=== PATIENT | female | born 1990 | race Hispanic/Latino ===

== ENCOUNTER 2019-12-02 11:02 | Emergency (ER) | payer SELFPAY ==
--- OUTSIDE RECORDS SUMMARY | 2019-12-02 12:19 | XMS REPORT ---
:1990 Author Organization [facility] t Address [address] [place] [address] Dr. Angela [address] [place] [id number] Care Team Providers Name Role Phone Unavailable Unavailable Unavailable Problems This patient has no known problems. Allergies, Adverse Reactions, Alerts This patient has no known allergies or adverse reactions. Medications This patient has no known medications. Procedures This patient has no known procedures. Results This patient has no known results.
[2019-12-02 12:27] LABS: Absolute Lymphocytes (CBC) 1.6 K/uL (0.7-4.9); Basophils % 0.4 % (0-1.3); Hematocrit 40.7 % (36.0-45.0); Lymphocytes % 28.3 % (15.3-44.8); MPV 10.1 fL (7.6-11.3); RBC Red Blood Cell Count 4.66 M/uL (3.86-4.86)
[2019-12-02 13:09] LABS: BUN Blood Urea Nitrogen 14 mg/dL (7-18); Bicarbonate 25 mmol/L (21-32); Glucose Level 97 mg/dL (74-106); HCG, Quantitative 12859 mIU/mL (1-3); Potassium 3.8 mmol/L (3.5-5.1); Sodium Level 136 mmol/L (136-145)
--- NOTE | 2019-12-02 14:30 | RAD REPORT ---
EXAM DESCRIPTION: US - Transvaginal OB - 12/02/2019 2:12 pm CLINICAL HISTORY: Vaginal bleeding;Abd cramping, COMPARISON: No comparisons TECHNIQUE: Endovaginal sonography performed. FINDINGS: Normal size uterus is present. No suspicious myometrial mass identifiable. Within the fundal endometrial cavity there are 3 small oval cystic masses. Within 1 cyst there is a y olk sac identifiable and possible pole. Within the possible pole there is no cardiac acti vity confirmed. Estimated age of the possible pole is 6 weeks 2 days. The 2 other smooth oval c ystic masses have no yolk sac or possible pole. No intrauterine hematoma. Both ovaries are identifiable. Small hemorrhagic cyst seen in the right ovary. No worrisome ovarian o r adnexal finding. No blood or fluid in the cul de sac. IMPRESSION: Three small adjacent cystic masses are present in the uterus all possibly gestational sa cs. Only 1 sac contains a yolk sac and possible pole. The pole measures approximately 6 weeks age but has no identifiable cardiac activity. No suspicious ovarian or adnexal finding.
[2019-12-02] MEDS ORDERED: ACETAMINOPHEN 500 MG TAB ONE (14:58)
[2019-12-02 15:20] VITALS: TEMP 97.3
[2019-12-02 15:22] VITALS: BP 115/82; O2SAT 100
[2019-12-02 15:26] LABS: Urine Blood TRACE (NEG); Urine Glucose NEGATIVE (NEG); Urine Protein NEGATIVE (NEG); Urine Specific Gravity 1.025 (1.005-1.030)
--- NOTE | 2019-12-06 15:52 | ER ---
Nurse's Notes [facility] Name: Sylvie Gomez Age: 29 yrs Sex: Female : 1990 Arrival Date: 12/02/2019 Time: 11:05 Bed 13 Private MD: Diagnosis: Threatened Presentation: 12/01 11:15 Chief complaint: Intermittent lower abdominal cramping and spotty vaginal bleeding x 2 hb weeks, passed a dark red blood clot this morning. Reports LMP September 2019, + home test last month, has been unable to get in to OBGYN. Coronavirus screen: Proceed with normal triage. Ebola Screen: No symptoms or risks identified at this time. Initial Sepsis Screen: Does the patient meet any 2 criteria? No. Patient's initial sepsis screen is negative. Does the patient have a suspected source of infection? No. Patient's initial sepsis screen is negative. Risk Assessment: Do you want to hurt yourself or someone else? Patient reports no desire to harm self or others. Onset of symptoms was December 02, 2019. 11:15 Method Of Arrival: Ambulatory hb 11:15 Acuity: SYDNEE 3 hb CV RN: 13:55 7, Full Term 6, LMP 09/28/2019 ll1 14:16 7, Full Term 6, Premature 0, 0, Living 6 jr8 Historical: - Allergies: 11:18 No Known Allergies; hb - Immunization history:: Adult Immunizations up to date. - Social history:: Smoking status: Patient denies any tobacco usage or history of. Patient/guardian denies using alcohol, street drugs, tobacco products. Screenin:13 Abuse screen: Denies threats or abuse. Nutritional screening: No deficits noted. ll1 Tuberculosis screening: No symptoms or risk factors identified. Fall Risk None identified. IV access (20 points). Total Richter Fall Scale indicates No Risk (0-24 pts). Assessment: 12:12 General: Appears in no apparent distress. Behavior is calm, cooperative, appropriate ll1 for age. Pain: Denies pain. Neuro: No deficits noted. Cardiovascular: No deficits noted. Respiratory: No deficits noted. : Reports vaginal bleeding that is bright red, with clots. 13:10 Reassessment: Patient appears in no apparent distress at this time. No changes from ll1 previously documented assessment. Patient and/or family updated on plan of care and expected duration. Pain level reassessed. Patient is alert, oriented x 3, equal unlabored respirations, skin warm/dry/pink. 13:54 : Urine is clear. ll1 14:15 Reassessment: Patient appears in no apparent distress at this time. Patient and/or vc family updated on plan of care and expected duration. Pain level reassessed. Patient is alert, oriented x 3, equal unlabored respirations, skin warm/dry/pink. 14:57 General: Appears in no apparent distress. uncomfortable, Behavior is calm, cooperative, vc appropriate for age. Pain: Complains of pain in left lower quadrant and right lower quadrant Pain does not radiate. Pain currently is 5 out of 10 on a pain scale. Quality of pain is described as crampy. : Reports vaginal bleeding that is bright red, with clots. Vital Signs: 11:15 BP 113 / 69; Pulse 71; Resp 16; Temp 97.3; Pulse Ox 100% on R/A; Weight 90.72 kg; hb Height 5 ft. 5 in. (165.10 cm); Pain 3/10; 14:45 BP 98 / 63; Pulse 64; Resp 16; Pulse Ox 98% on R/A; vc 15:13 BP 115 / 82; Pulse 65; Resp 18; Pulse Ox 100% on R/A; vc 11:15 Body Mass Index 33.28 (90.72 kg, 165.10 cm) hb ED Course: 11:05 Patient arrived in ED. mr 11:18 Triage completed. hb 11:52 Chanelle Leong, RN is Primary Nurse. ll1 11:57 Christo Red PA is PHCP. jr8 11:57 Mike Morris MD is Attending Physician. jr8 12:00 Inserted saline lock: 20 gauge in left antecubital area, using aseptic technique. Blood ll1 collected. 12:14 Arm band placed on. ll1 13:25 Urine collected: clean catch specimen, clear. ca1 14:05 Patient has correct armband on for positive identification. Bed in low position. Call vc light in reach. Pulse ox on. NIBP on. 14:12 US Transvaginal Ob In Process Unspecified. EDMS 14:19 Ultrasound completed. hr 14:53 Santo Clifton MD is Referral Physician. jr8 14:57 No provider procedures requiring assistance completed. vc 15:14 IV discontinued, intact, bleeding controlled, No redness/swelling at site. Pressure vc dressing applied. Administered Medications: 14:56 Drug: Tylenol 1000 mg Route: PO; vc 15:10 Follow up: Response: No adverse reaction vc Outcome: 14:53 Discharge ordered by . jr8 15:14 Discharged to home ambulatory. vc 15:14 Condition: good 15:14 Discharge instructions given to patient, Instructed on discharge instructions, follow up and referral plans. Demonstrated understanding of instructions, follow-up care. 15:15 Patient left the ED. vc Signatures: Dispatcher [employer] EDDC Noah Delaney mr Familia, Christo Estrada, TIMBO PA jr8 Bonnie Corley, RN RN Iza Coleman RN RN ca1 Deborah Cervantes RN RN Chanelle Schreiber RN RN ll1 Corrections: (The following items were deleted from the chart) 13:55 13:54 Reassessment: Patient appears in no apparent distress at this time. No changes ll1 from previously documented assessment. Patient and/or family updated on plan of care and expected duration. Pain level reassessed. Patient is alert, oriented x 3, equal unlabored respirations, skin warm/dry/pink. ll1
--- NOTE | 2019-12-06 15:52 | EDPHYS ---
Physician Documentation [facility] Name: Sylvie Gomez Age: 29 yrs Sex: Female : 1990 Arrival Date: 12/02/2019 Time: 11:05 Bed 13 Private MD: ED Physician Mike Morris HPI: 12/01 14:16 This 29 yrs old Female presents to ER via Ambulatory with complaints of jr8 , Vaginal Bleeding, Abdominal Cramping. 14:16 The patient presents to the emergency department with abdominal pain, vaginal bleeding, jr8 described as spotting, with clots. course: care: none, Leakage of Fluid: none appreciated, Ultrasound: the patient has not had an ultrasound, Risk/complications: no obvious risks or complications are appreciated. Previous pregnancies: in previous pregnancies patient has had vaginal delivery, no complications. Associated signs and symptoms: The patient has no apparent associated signs or symptoms. The patient has not experienced similar symptoms in the past. The patient has not recently seen a physician. Stated that she has been having spotting and cramping for past couple of weeks. Cramping getting worse. Has not been able to see OB yet . 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 - Social history:: Smoking status: Patient denies any tobacco usage or history of. Patient/guardian denies using alcohol, street drugs, tobacco products. ROS: 14:16 Eyes: Negative for injury, pain, redness, and discharge, ENT: Negative for injury, jr8 pain, and discharge, Neck: Negative for injury, pain, and swelling, Cardiovascular: Negative for chest pain, palpitations, and edema, Respiratory: Negative for shortness of breath, cough, wheezing, and pleuritic chest pain, Back: Negative for injury and pain, MS/Extremity: Negative for injury and deformity, Skin: Negative for injury, rash, and discoloration, Neuro: Negative for headache, weakness, numbness, tingling, and seizure. 14:16 Abdomen/GI: Positive for abdominal cramps, Negative for nausea, vomiting, and diarrhea. 14:16 : Positive for vaginal bleeding, Negative for urinary symptoms. Exam: 14:16 Eyes: Pupils equal round and reactive to light, extra-ocular motions intact. Lids and jr8 lashes normal. Conjunctiva and sclera are non-icteric and not injected. Cornea within normal limits. Periorbital areas with no swelling, redness, or edema. ENT: Nares patent. No nasal discharge, no septal abnormalities noted. Tympanic membranes are normal and external auditory canals are clear. Oropharynx with no redness, swelling, or masses, exudates, or evidence of obstruction, uvula midline. Mucous membranes moist. Neck: Trachea midline, no thyromegaly or masses palpated, and no cervical lymphadenopathy. Supple, full range of motion without nuchal rigidity, or vertebral point tenderness. No Meningismus. Cardiovascular: Regular rate and rhythm with a normal S1 and S2. No gallops, murmurs, or rubs. Normal PMI, no JVD. No pulse deficits. Respiratory: Lungs have equal breath sounds bilaterally, clear to auscultation and percussion. No rales, rhonchi or wheezes noted. No increased work of breathing, no retractions or nasal flaring. Back: No spinal tenderness. No costovertebral tenderness. Full range of motion. Skin: Warm, dry with normal turgor. Normal color with no rashes, no lesions, and no evidence of cellulitis. MS/ Extremity: Pulses equal, no cyanosis. Neurovascular intact. Full, normal range of motion. Neuro: Awake and alert, GCS 15, oriented to person, place, time, and situation. Cranial nerves II-XII grossly intact. Motor strength 5/5 in all extremities. Sensory grossly intact. Cerebellar exam normal. Normal gait. 14:16 Abdomen/GI: Inspection: abdomen appears normal, Bowel sounds: active, all quadrants, Palpation: soft, in all quadrants, mild abdominal tenderness, in the right lower quadrant and left lower quadrant, mass, is not appreciated, rebound tenderness, is not appreciated, voluntary guarding, is not appreciated, involuntary guarding, is not appreciated, no appreciated organomegaly, Indicators: McBurney's point is not tender, Puga's sign is negative, Rovsing's sign is negative, Liver: tenderness, is not appreciated. Vital Signs: 11:15 BP 113 / 69; Pulse 71; Resp 16; Temp 97.3; Pulse Ox 100% on R/A; Weight 90.72 kg; hb Height 5 ft. 5 in. (165.10 cm); Pain 3/10; 14:45 BP 98 / 63; Pulse 64; Resp 16; Pulse Ox 98% on R/A; vc 15:13 BP 115 / 82; Pulse 65; Resp 18; Pulse Ox 100% on R/A; vc 11:15 Body Mass Index 33.28 (90.72 kg, 165.10 cm) hb MDM: 11:57 Patient medically screened. [facility] 14:42 Data reviewed: vital signs, nurses notes, lab test result(s), radiologic studies, [facility] ultrasound, and as a result, I will discharge patient. Data interpreted: Pulse oximetry: on room air is 100 %. Interpretation: normal. Counseling: I had a detailed discussion with the patient and/or guardian regarding: the historical points, exam findings, and any diagnostic results supporting the discharge/admit diagnosis, lab results, radiology results, the need for outpatient follow up, an OB/Gyne specialist, to return to the emergency department if symptoms worsen or persist or if there are any questions or concerns that arise at home. 12/01 11:57 Order name: Quantitative Hcg; Complete Time: 13: [facility] 12/01 11:57 Order name: Abo/rh Typing; Complete Time: 13: [facility] 12/01 11:57 Order name: Basic Metabolic Panel; Complete Time: 13: [facility] 12/01 11:57 Order name: CBC with Diff; Complete Time: 13: [facility] 12/01 13:33 Order name: Urine Dipstick--Ancillary (enter results) 12/01 13:33 Order name: Urine --Ancillary (enter results) 12/01 11:57 Order name: Urine Test (obtain specimen); Complete Time: 13:25 [facility] 12/01 11:57 Order name: IV Saline Lock; Complete Time: 12: [facility] 12/01 11:57 Order name: Labs collected and sent; Complete Time: 12: [facility] 12/01 11:57 Order name: NPO; Complete Time: 12: [facility] 12/01 11:57 Order name: Urine Dipstick-Ancillary (obtain specimen); Complete Time: 13: [facility] 12/01 13:27 Order name: US Transvaginal Ob; Complete Time: 14:40 8 Administered Medications: 14:56 Drug: Tylenol 1000 mg Route: PO; vc 15:10 Follow up: Response: No adverse reaction vc Disposition: 12/02/19 14:53 Discharged to Home. Impression: Threatened . - Condition is Stable. - Discharge Instructions: Threatened Miscarriage, Vaginal Bleeding During , First Trimester, Pelvic Rest. - Medication Reconciliation Form, Thank You Letter, Antibiotic Education, Prescription Opioid Use form. - Follow up: Santo Clifton MD; When: 5 - 6 days; Reason: Recheck today's complaints, Continuance of care, Re-evaluation by your physician. - Problem is new. - Symptoms have improved. Addendum: 12/04/2019 07:53 Co-signature as Attending Physician, Mike Morris MD I agree with the assessment and k dr plan of care. Signatures: Dispatcher [employer] EDMS Mike Morris MD MD [facility] Christo Red PA PA jr8 Bonnie Corley RN RN Deborah Cervantes RN RN vc Chanelle Leong RN RN ll1 Corrections: (The following items were deleted from the chart) 12/01 15:15 14:53 12/02/2019 14:53 Discharged to Home. Impression: Threatened . Condition vc is Stable. Forms are Medication Reconciliation Form, Thank You Letter, Antibiotic Education, Prescription Opioid Use. Follow up: Santo Clifton; When: 5 - 6 days; Reason: Recheck today's complaints, Continuance of care, Re-evaluation by your physician. Problem is new. Symptoms have improved. jr8
== END 2019-12-02 15:15 | disposition home or self-care (01) ==
LOC: ER 11:02
DX: O20.0 Threatened abortion (principal)
CPT/HCPCS: 36415; 76817; 80048; 81003; 81025; 84702; 85025; 86900; 86901; 99284

== ENCOUNTER 2019-12-05 21:19 | Emergency (ER) | payer OTHER, SELFPAY ==
--- OUTSIDE RECORDS SUMMARY | 2019-12-05 21:21 | XMS REPORT ---
:1990 Author Organization [facility] t Address [address] [place] [address] Dr. Angela [address] [place] [id number] Care Team Providers Name Role Phone Unavailable Unavailable Unavailable Problems This patient has no known problems. Allergies, Adverse Reactions, Alerts This patient has no known allergies or adverse reactions. Medications This patient has no known medications. Procedures This patient has no known procedures. Results This patient has no known results.
[2019-12-05 22:17] LABS: Specific Gravity >= 1.030 (1.005-1.030); Urine Appearance CLOUDY; Urine Bilirubin NEGATIVE (NEG); Urine Blood 3+ (NEG); Urine Color YELLOW; Urine Glucose NEGATIVE (NEG); Urine Protein 3+ (NEG); Urine Specific Gravity >=1.030 (1.005-1.030)
[2019-12-05 22:19] LABS: Urine Microscopic Reflex ORDER UMIC
[2019-12-05 22:21] LABS: Urine Bacteria <20 /HPF (<20); Urine RBC LOADED /HPF (NONE SEEN)
[2019-12-05 22:22] LABS: Urine Culture Reflex Order NOT NEEDED
[2019-12-05 23:24] LABS: Absolute Lymphocytes (CBC) 2.5 K/uL (0.7-4.9); Basophils % 0.5 % (0-1.3); Hematocrit 36.7 % (36.0-45.0); Lymphocytes % 30.1 % (15.3-44.8); MPV 9.8 fL (7.6-11.3); RBC Red Blood Cell Count 4.12 M/uL (3.86-4.86)
[2019-12-05 23:31] LABS: BUN Blood Urea Nitrogen 13 mg/dL (7-18); Bicarbonate 27 mmol/L (21-32); Glucose Level 103 mg/dL (74-106); Potassium 3.5 mmol/L (3.5-5.1); Sodium Level 141 mmol/L (136-145)
[2019-12-06 00:59] LABS: HCG, Quantitative 7711 mIU/mL (1-3)
[2019-12-06] MEDS ORDERED: METHYLERGONOVINE 0.2MG/ML AMP IM ONE (01:10)
[2019-12-06] MEDS ORDERED: METHYLERGONOVINE 0.2 MG TAB PO ONE (01:19)
[2019-12-06 02:36] VITALS: O2SAT 99
[2019-12-06 02:41] VITALS: BP 127/82; TEMP 97.2
--- NOTE | 2019-12-06 08:34 | RAD REPORT ---
EXAM DESCRIPTION: US - Transvaginal OB - 12/05/2019 11:39 pm CLINICAL HISTORY: VAGINAL BLEEDING COMPARISON: Transvaginal OB dated 12/02/2019 FINDINGS: Endovaginal sonography shows normal size uterus with no myometrial mass identifiable. An i rregular elongated fluid collection is present in the lower uterine segment. Within this fluid collec tion there is no identifiable yolk sac or pole. Small amount of echogenic debris is present wit hin this cystic structure. Right ovary is identified and normal. No right adnexal abnormality. Left ovary is obscured by bowel. No left adnexal abnormality. No blood or fluid in the cul de sac. IMPRESSION: Irregular elongated fluid-filled sac in the lower uterine segment containing echogenic d ebris but no pole or yolk sac. In the setting of positive test this is most likely a miscarriage. No adnexal mass to suspect ectopic .
--- NOTE | 2019-12-06 19:34 | EDPHYS ---
Physician Documentation [facility] Name: Sylvie Gomez Age: 29 yrs Sex: Female : 1990 Arrival Date: 12/05/2019 Time: 21:23 Bed 13 Private MD: ED Physician Neftaly Mcallister HPI: 12/05 00:35 This 29 yrs old Female presents to ER via Ambulatory with complaints of pkl Vaginal Bleeding. 00:35 The patient presents with vaginal bleeding that is moderate, with clots. Onset: The pkl symptoms/episode began/occurred today. Patient was seen in this ER 3 days ago. US shows possibly 3 gestational sacs. Only 1 sac contains a yolk sac and possible pole. The pole measures approx. 6 weeks age but has no identifiable cardiac activity. Patient said her vaginal bleeding is heavier today and she is passing clots.. 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 - Social history:: Smoking status: Patient denies any tobacco usage or history of. ROS: 12/05 00:35 Positive for vaginal bleeding. pkl Eyes: Negative for injury, pain, redness, and discharge, ENT: Negative for injury, pain, and discharge, Neck: Negative for injury, pain, and swelling, Cardiovascular: Negative for chest pain, palpitations, and edema, Respiratory: Negative for shortness of breath, cough, wheezing, and pleuritic chest pain, Abdomen/GI: Negative for abdominal pain, nausea, vomiting, diarrhea, and constipation, Back: Negative for injury and pain, MS/Extremity: Negative for injury and deformity, Skin: Negative for injury, rash, and discoloration, Neuro: Negative for headache, weakness, numbness, tingling, and seizure. Exam: 00:35 Head/Face: Normocephalic, atraumatic. Eyes: Pupils equal round and reactive to light, pkl extra-ocular motions intact. Lids and lashes normal. Conjunctiva and sclera are non-icteric and not injected. Cornea within normal limits. Periorbital areas with no swelling, redness, or edema. ENT: Nares patent. No nasal discharge, no septal abnormalities noted. Tympanic membranes are normal and external auditory canals are clear. Oropharynx with no redness, swelling, or masses, exudates, or evidence of obstruction, uvula midline. Mucous membranes moist. Neck: Trachea midline, no thyromegaly or masses palpated, and no cervical lymphadenopathy. Supple, full range of motion without nuchal rigidity, or vertebral point tenderness. No Meningismus. Chest/axilla: Normal chest wall appearance and motion. Nontender with no deformity. No lesions are appreciated. Cardiovascular: Regular rate and rhythm with a normal S1 and S2. No gallops, murmurs, or rubs. Normal PMI, no JVD. No pulse deficits. Respiratory: Lungs have equal breath sounds bilaterally, clear to auscultation and percussion. No rales, rhonchi or wheezes noted. No increased work of breathing, no retractions or nasal flaring. Abdomen/GI: Soft, non-tender, with normal bowel sounds. No distension or tympany. No guarding or rebound. No evidence of tenderness throughout. Back: No spinal tenderness. No costovertebral tenderness. Full range of motion. 00:35 : Pelvic Exam: Speculum exam: mild bleeding, os that is open, a female employee services manager was present for the exam. 00:35 Musculoskeletal/extremity: Exam is negative for acute changes. 00:35 Skin: Exam negative for rash. 00:35 Neuro: Orientation: is normal, Mentation: is normal, Cranial nerves: grossly normal, Motor: is normal. Vital Signs: 12/04 21:30 BP 121 / 66; Pulse 77; Resp 17 S; Temp 97.3(TE); Pulse Ox 99% on R/A; Weight 90.72 kg ca1 (R); Height 5 ft. 5 in. (165.10 cm) (R); Pain 8/10; 06 00:58 BP 127 / 82; Pulse 71; Resp 19; Temp 97.2(O); Pulse Ox 99% on R/A; Pain 2/10; ls4 12/04 21:30 Body Mass Index 33.28 (90.72 kg, 165.10 cm) ca1 MDM: 12/04 22:05 Patient medically screened. pkl 12/05 00:47 Data reviewed: vital signs, nurses notes. ED course: Patient feeling better. Minimal pkl vaginal bleeding. Advised to follow up with Video Game Repair Technician. in 1 to 2 days. Patient understood instructions. To return to ER if necessary. 12/04 21:58 Order name: Urinalysis; Complete Time: 00:22 mt 12/04 22:08 Order name: CBC with Diff; Complete Time: 00:22 pkl 12/04 22:08 Order name: Chem 7; Complete Time: 02:20 pkl 12/04 22:10 Order name: Test, Urine; Complete Time: 00:22 EDMS 12/04 22:20 Order name: Urine Microscopic Only; Complete Time: 00:22 EDMS 12/04 22:08 Order name: US Transvaginal Ob pkl 12/05 00:28 Order name: HCG, Quantitative; Complete Time: 02:20 EDMS Administered Medications: 01:35 Drug: METHERgine 0.2 mg {Note: Nurse sheet manufacturing supervisor brought to ed. .} Route: PO; ls4 01:50 Follow up: Response: No adverse reaction ls4 Disposition: 12/06/19 00:51 Discharged to Home. Impression: Spontaneous . - Condition is Stable. - Medication Reconciliation Form, Thank You Letter, Antibiotic Education, Prescription Opioid Use form. - Follow up: Private Physician; When: 1 - 2 days; Reason: Re-evaluation by your physician. - Problem is new. - Symptoms have improved. Signatures: Dispatcher [employer] [facility] Neftaly Mcallister MD MD pkJu Coughlin, RN RN ls4 Iza Galvez RN RN ca1 Corrections: (The following items were deleted from the chart) 00:28 00:25 QUANTITATIVE HCG+C.LAB.BRZ ordered. [facility] EDMI 02:18 00:51 12/06/2019 00:51 Discharged to Home. Impression: Spontaneous . Condition ls4 is Stable. Forms are Medication Reconciliation Form, Thank You Letter, Antibiotic Education, Prescription Opioid Use. Follow up: Private Physician; When: 1 - 2 days; Reason: Re-evaluation by your physician. Problem is new. Symptoms have improved. pkl
--- NOTE | 2019-12-06 19:34 | ER ---
Nurse's Notes [facility] Name: Sylvie Gomez Age: 29 yrs Sex: Female : 1990 Arrival Date: 12/05/2019 Time: 21:23 Bed 13 Private MD: Diagnosis: Spontaneous Presentation: 12/04 21:30 Chief complaint: Patient states: 8-9 weeks, was here on for light ca1 vaginal bleeding and cramping. They said I have 3 gestational sacs. I had a transvaginal US. Since then, vaginal bleeding has increased from light to heavy with blood clots, saturating 6 pads within an hour. Reports cramping. Denies N/V. Coronavirus screen: Proceed with normal triage. Patient denies a cough. Patient denies shortness of breath or difficulty breathing. Patient denies measured and/or subjective temperature greater than 100.4F prior to today's visit. Patient denies travel on a cruise ship or to a country the [facility] currently lists as an affected area. Patient denies contact with known and/or suspected case of COVID-19. Ebola Screen: Patient negative for fever greater than or equal to 101.5 degrees Fahrenheit, and additional compatible Ebola Virus Disease symptoms Patient denies exposure to infectious person. Patient denies travel to an Ebola-affected area in the 21 days before illness onset. No symptoms or risks identified at this time. Initial Sepsis Screen: Does the patient meet any 2 criteria? No. Patient's initial sepsis screen is negative. Does the patient have a suspected source of infection? No. Patient's initial sepsis screen is negative. Risk Assessment: Do you want to hurt yourself or someone else? Patient reports no desire to harm self or others. Onset of symptoms was December 05, 2019. 21:30 Method Of Arrival: Ambulatory ca1 21:30 Acuity: SYDNEE 3 ca1 Triage Assessment: 22:00 General: Appears in no apparent distress. comfortable, Behavior is calm, cooperative. ls4 22:00 : Reports vaginal bleeding that is bright red, with clots, moderate flow. ls4 22:00 Pain: Denies pain. ls4 22:00 Neuro: Cardiovascular: No deficits noted. Respiratory: No deficits noted. GI: No ls4 deficits noted. Derm: No deficits noted. No signs and/or symptoms reported regarding the dermatologic system. Musculoskeletal:. CONDUCTOR YARD: 21:38 7, Full Term 6, Premature 0, 0, Living 6, LMP 09/28/2019 ca1 12/05 00:35 7, Full Term 6, Premature 0, 0, Living 6, LMP 09/28/2019 pkl Historical: - Allergies: 12/04 21:38 No Known Allergies; ca1 - Home Meds: 21:38 None [Active]; ca1 - PMHx: 21:38 None; ca1 - PSHx: 21:38 None; ca1 - Immunization history:: Adult Immunizations up to date. - Social history:: Smoking status: Patient denies any tobacco usage or history of. Screenin:00 Abuse screen: Denies threats or abuse. Denies injuries from another. Nutritional ls4 screening: No deficits noted. Tuberculosis screening: No symptoms or risk factors identified. Fall Risk None identified. Assessment: 22:08 : Urine is clear, Reports vaginal bleeding that is bright red, light flow. ls4 23:00 Reassessment: Patient appears in no apparent distress at this time. Patient and/or ls4 family updated on plan of care and expected duration. Pain level reassessed. Patient is alert, oriented x 3, equal unlabored respirations, skin warm/dry/pink. 12/05 01:00 Reassessment: Patient appears in no apparent distress at this time. Patient and/or ls4 family updated on plan of care and expected duration. Pain level reassessed. Patient is alert, oriented x 3, equal unlabored respirations, skin warm/dry/pink. Vital Signs: 12/04 21:30 BP 121 / 66; Pulse 77; Resp 17 S; Temp 97.3(TE); Pulse Ox 99% on R/A; Weight 90.72 kg ca1 (R); Height 5 ft. 5 in. (165.10 cm) (R); Pain 8/10; 12/05 00:58 BP 127 / 82; Pulse 71; Resp 19; Temp 97.2(O); Pulse Ox 99% on R/A; Pain 2/10; ls4 12/04 21:30 Body Mass Index 33.28 (90.72 kg, 165.10 cm) ca1 ED Course: 12/04 21:23 Patient arrived in ED. bp1 21:38 Triage completed. ca1 21:38 Arm band placed on right wrist. ca1 22:00 Patient has correct armband on for positive identification. Bed in low position. Call ls4 light in reach. Side rails up X 1. Pulse ox on. NIBP on. 22:00 Diet: Patient is NPO. ls4 22:05 Neftaly Mcallister MD is Attending Physician. [email or web address] 22:14 Ju Mills, RN is Primary Nurse. ls4 23:00 Initial lab(s) drawn, by me, sent to lab. Inserted saline lock: 20 gauge in right ls4 antecubital area, using aseptic technique. Blood collected. 23:32 Ultrasound completed. Patient tolerated well. Notified ED Physician marc. sg3 23:34 US Transvaginal Ob In Process Unspecified. EDMS 12/05 00:52 Assist provider with pelvic exam: Set up pelvic tray. Performed by Neftaly Mcallister MD Patient ls4 tolerated well. chaperoned by this nurse. 01:45 IV discontinued, intact, bleeding controlled, No redness/swelling at site. Pressure ls4 dressing applied. Administered Medications: 01:35 Drug: METHERgine 0.2 mg {Note: Nurse beet end supervisor brought to ed. .} Route: PO; ls4 01:50 Follow up: Response: No adverse reaction ls4 Outcome: 00:51 Discharge ordered by . pkl 01:45 Discharged to home ambulatory. ls4 01:45 Condition: good 01:45 Discharge instructions given to patient, Instructed on discharge instructions, follow up and referral plans. medication usage, Demonstrated understanding of instructions, follow-up care, medications. 01:50 Patient left the ED. ls4 Signatures: Dispatcher [employer] EDDC Neftaly Mcallister MD MD pkl Aleena Gross sg3 Ju Mills, RN RN ls4 Iza Galvez RN RN ca1 Kita Krueger [facility] Corrections: (The following items were deleted from the chart) 00:56 00:02 Pain: Denies pain. ls4 ls4 02:15 05/31 22:00 : Reports vaginal bleeding that is ls4 ls4 12/05 02:16 00:58 BP 127 / 8; Pulse 71bpm; Resp 19bpm; Pulse Ox 99% RA; Temp 97.2F Oral; Pain 2/10; ls4 ls4 02:17 00:52 No provider procedures requiring assistance completed. ls4 ls4 02:18 00:52 Assist provider with pelvic exam: Set up pelvic tray. Performed by Neftaly Mcallister MD ls4 Patient tolerated well. ls4 02: 02:18 Patient left the ED. ls4 ls4
== END 2019-12-06 02:18 | disposition home or self-care (01) ==
LOC: ER 21:19
DX: O03.9 Complete or unspecified spontaneous abortion without complication (principal)
CPT/HCPCS: 36415; 76817; 80048; 81003; 81015; 81025; 84702; 85025; 99284; J2210

== ENCOUNTER 2021-03-10 01:04 | Inpatient (IN) | payer OTHER ==
--- OUTSIDE RECORDS SUMMARY | 2021-03-10 01:07 | XMS REPORT | Continuity of Care Document ---
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 Unknown Attending Clinician Unavailable Only, Db Test Attending Clinician Unavailable Payers Payer Name Policy Type Policy Effective Date Expiration Date Sour ce Number [facility] [id number] 2020 Universit y of HEALTH PLAN - 00:00:00 [place] [facility] [place] MANAGED Branch [place] CHILDRENS [id number] /07/2019-PresentM edicaid Advance Directives Directive Decision Effective Termination Comments Source Date Date Healthcare Agents on N/A Univ ersity FileNameRelationshipHealthcare [facility] Agent Medical RelationshipCommunicationVidal Branch ArcosOtherHealth Care [phone] (Mobile) Problems Condition Condition Condition Status Onset Resolution Last Treating Co mments Source Name Details Category Date Date Treatment Clinician Date Presence Presence Disease Active Unive rs of of 4-20 [place] contracept contracept Br anch reddy device reddy device Pain Pain Disease Active Univers pelvic pelvic 4-20 ity of 00:00: [address] BMI BMI Disease Active 2019- Univers 34.0-34.9, 34.0-34.9, 6-25 it y of adult adult 00:00: [place] 00 Medical Branch Encounter Encounter Disease Active Uni vers for IUD for IUD 6-25 [place] Miscarriag Miscarriag Disease Active U nivers e within e within 6-25 ity of last 12 last 12 00:00: [place] months months 00 Medical Branch Cervical Cervical Disease Active 2018-07 Overview: Un lala Papanicola Papanicola 2-12 Formattin ity of ou smear ou smear 00:00: g of this [place] as negative negative 00 note Medica l within within might be Branch last 12 last 12 different months months from the original. 12/2017 see scanned records Susceptibl Susceptibl Disease Active 2018-07 U nivers e e 1-18 [place] Allergies, Adverse Reactions, Alerts This patient has no known allergies or adverse reactions. Social History Social Habit Start Date Stop Date Quantity Comments Source History [facility] University o f Alcohol Std [place] [facility] Branch History [facility] o f Alcohol Binge [facility] [place] [facility] al [place] Exposure to Not sure [facility] SARS-CoV-2 [facility] (event) [place] Tobacco use and 2021-03-01 2021-03-01 Never used Universit y of exposure 00:00:00 00:00:00 [facility] Alcohol intake 2021-03-01 2021-03-01 Ex-drinker University 00:00:00 00:00:00 (finding) [facility] History [facility] 2019-05-20 2019-05-20 1 University o f Alcohol Frequency 00:00:00 00:00:00 [facility] Sex Ass[birth year] Universit y of 00:00:00 00:00:00 [facility] Smoking Status Start Date Stop Date Source Never smoker [facility] Medications Ordered Filled Start Stop Current Ordering Indication Dosage Frequency Signature Comments Components Source Medication Medication Date Date Medication? Clinician (SIG) Name Name No known No Univers medications [facility] No known No Univers medications [facility] No known No Univers medications [facility] Immunizations Ordered Filled Immunization Date Status Comments Sourc e Immunization Name Name Varicella 2019-05-30 Completed [facility] (varivax)(chicken 00:00:00 [facility] edical pox) Branch Varicella 2019-05-30 Completed University of (varivax)(chicken 00:00:00 [facility] edical pox) Branch Varicella 2019-05-30 Completed University of (varivax)(chicken 00:00:00 [facility] edical pox) Branch Influenza Virus 2019-05-20 Completed Universit y of Vaccine Quad .5 mL 00:00:00 [facility] 6+ MO Branch TDAP (ADACEL) 2019-05-20 Completed University of VACCINE 00:00:00 [facility] Influenza Virus 2019-05-20 Completed Universit y of Vaccine Quad .5 mL 00:00:00 [facility] 6+ MO Branch TDAP (ADACEL) 2019-05-20 Completed University of VACCINE 00:00:00 [facility] Influenza Virus 2019-05-20 Completed Universit y of Vaccine Quad .5 mL 00:00:00 [facility] 6+ MO Branch TDAP (ADACEL) 2019-05-20 Completed [place] of VACCINE 00:00:00 [facility] Vital Signs Vital Name Observation Time Observation Value Comments Source Respiratory rate 2021-03-02 00:31:00 16 /min [facility] Body height 2021-03-02 00:31:00 162.6 cm [facility] Body weight 2021-03-02 00:31:00 103.465 kg [facility] BMI 2021-03-02 00:31:00 39.15 kg/m2 [facility] Oxygen saturation in 2021-03-02 00:31:00 97 /min [facility] Arterial blood by [facility] Pulse oximetry Branch Procedures This patient has no known procedures. Encounters Start End Encounter Admission Attending Care Care Encounter Source Date/Time Date/Time Type Type Clinicians Facility Department ID 2021-03-03 2021-03-03 Letter Vira Pamler [id number] Univers 00:00:00 00:00:00 (Out) SALO [id number] it [facility] [id number] [place] as [id number] [facility] 019 Branch 2021-03-01 2021-03-01 Urgent Christina Huitron [facility] [id number] Univers 19:28:29 19:48:29 Care Unknown, Attending Health [id number] ity of [place] [id number] [place] as Ion?[place]le[place] [id number] [address] Office Building 2021-03-01 2021-03-01 Laboratory Only, Ang Db Test [facility] [id number] [facility] 19:37:34 19:47:34 Only Unknown, Attending Health [id number] ity of [place] [id number] [place] as Ion?[place]lea [id number] [address] [facility] Results This patient has no known results.
[2021-03-10 02:22] LABS: Protime INR 1.09
[2021-03-10] MEDS ORDERED: ALBUTEROL INHALER 60 PUFF/8 GM IH ONE (02:29)
[2021-03-10] MEDS ORDERED: METHYLPREDNISOLONE 40 MG INJ ONE (02:29)
[2021-03-10 02:40] LABS: Absolute Lymphocytes (CBC) 1.2 K/uL (0.7-4.9); Basophils % 0.3 % (0-1.3); Hematocrit 43.7 % (36.0-45.0); Lymphocytes % 30.6 % (15.3-44.8); MPV 8.9 fL (7.6-11.3); RBC Red Blood Cell Count 5.05 M/uL (3.86-4.86)
[2021-03-10 02:46] LABS: ALT/SGPT 33 U/L (12-78); AST/SGOT 40 U/L (15-37); Albumin 3.5 g/dL (3.4-5.0); Alkaline Phosphatase 103 U/L (45-117); BUN Blood Urea Nitrogen 9 mg/dL (7-18); Bicarbonate 24 mmol/L (21-32); Bilirubin Direct 0.2 mg/dL (0-0.2); Bilirubin Total 0.5 mg/dL (0.2-1.0); Glucose Level 110 mg/dL (74-106); Magnesium 2.2 mg/dL (1.8-2.4); Potassium 3.6 mmol/L (3.5-5.1); Protein, Total 7.9 g/dL (6.4-8.2); Sodium Level 139 mmol/L (136-145); Troponin (Emerg Dept Use Only) < 0.02 ng/mL (0.0-0.045)
[2021-03-10 02:52] LABS: NT PRO-BNP < 5 pg/mL (<125)
[2021-03-10 03:30] LABS: Urine Blood 3+ (Negative); Urine Glucose Negative (Negative); Urine Protein 3+ (Negative); Urine Specific Gravity 1.025 (1.005-1.030)
[2021-03-10 03:32] LABS: Urine Specific Gravity/Preg 1.025 (1.005-1.030)
[2021-03-10] MEDS ORDERED: NA CHLORIDE 0.9% 1,000 ML ONE (04:14)
--- NOTE | 2021-03-10 04:51 | EDPHYS ---
Physician Documentation [facility] Name: Sylvie Gomez Age: 30 yrs Sex: Female : 1990 Arrival Date: 03/10/2021 Time: 01:07 Bed 12 Private MD: ED Physician Phong Horan HPI: 03/10 02:05 This 30 yrs old Female presents to ER via Ambulatory with complaints of Cough, mh7 Breathing Difficulty. 02:05 The patient or guardian reports cough, that is intermittent, described as mild, with no mh7 sputum, difficulty breathing, flu symptoms, myalgias. 02:05 Onset: The symptoms/episode began/occurred 1 week(s) ago. [facility] 02:05 Severity of symptoms: At their worst the symptoms were moderate, 3 day(s) ago, in the [facility] emergency department the symptoms are unchanged. Modifying factors: The symptoms are alleviated by nothing, the symptoms are aggravated by exertion. Associated signs and symptoms: Pertinent positives: chest pain, with cough, rhinorrhea, Pertinent negatives: diarrhea, ear ache, fever, nausea, sore throat, vomiting. 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 - Social history:: Smoking status: Patient denies any tobacco usage or history of. ROS: 02:05 Constitutional: Negative for fever, chills, and weight loss, Eyes: Negative for injury, mh7 pain, redness, and discharge, Neck: Negative for injury, pain, and swelling, Abdomen/GI: Negative for abdominal pain, nausea, vomiting, diarrhea, and constipation, Back: Negative for injury and pain, : Negative for injury, bleeding, discharge, and swelling, MS/Extremity: Negative for injury and deformity, Skin: Negative for injury, rash, and discoloration, Neuro: Negative for headache, weakness, numbness, tingling, and seizure, Psych: Negative for depression, anxiety, suicide ideation, homicidal ideation, and hallucinations, Allergy/Immunology: Negative for hives, rash, and allergies, Endocrine: Negative for neck swelling, polydipsia, polyuria, polyphagia, and marked weight changes, Hematologic/Lymphatic: Negative for swollen nodes, abnormal bleeding, and unusual bruising. Exam: 02:05 Constitutional: This is a well developed, well nourished patient who is awake, alert, mh7 and in no acute distress. Head/Face: Normocephalic, atraumatic. Eyes: Pupils equal round and reactive to light, extra-ocular motions intact. Lids and lashes normal. Conjunctiva and sclera are non-icteric and not injected. Cornea within normal limits. Periorbital areas with no swelling, redness, or edema. Neck: Trachea midline, no thyromegaly or masses palpated, and no cervical lymphadenopathy. Supple, full range of motion without nuchal rigidity, or vertebral point tenderness. No Meningismus. 02:05 Abdomen/GI: Soft, non-tender, with normal bowel sounds. No distension or tympany. No guarding or rebound. No evidence of tenderness throughout. Back: No spinal tenderness. No costovertebral tenderness. Full range of motion. Skin: Warm, dry with normal turgor. Normal color with no rashes, no lesions, and no evidence of cellulitis. MS/ Extremity: Pulses equal, no cyanosis. Neurovascular intact. Full, normal range of motion. Neuro: Awake and alert, GCS 15, oriented to person, place, time, and situation. Cranial nerves II-XII grossly intact. Motor strength 5/5 in all extremities. Sensory grossly intact. Cerebellar exam normal. Normal gait. 02:05 Chest/axilla: Inspection: normal, Palpation: tenderness, that is moderate, of the mid-sternal area, that totally reproduces the patient's complaints, Axilla: are normal, Lymph nodes: lymphadenopathy is not appreciated. 02:05 Cardiovascular: Rate: tachycardic, Rhythm: regular, Pulses: no pulse deficits are appreciated, Heart sounds: normal, normal S1and S2, Edema: is not appreciated, JVD: is not appreciated. 02:05 Respiratory: mild respiratory distress is noted, Respirations: prolonged exhalation, that is mild, Breath sounds: rhonchi, that are mild, are scattered, Respiratory rate: 24 Vital Signs: 01:35 BP 116 / 76; Pulse 109; Resp 24; Temp 98.7(TE); Pulse Ox 97% on R/A; Weight 104.33 kg kg (R); Height 5 ft. 5 in. (165.10 cm); Pain 10/10; 03:13 BP 103 / 65; Pulse 101; Resp 20 S; Pulse Ox 92% on R/A; bb 04:40 BP 100 / 59; Pulse 97; Resp 20 S; Pulse Ox 92% on R/A; bb 04:45 Pulse 109; Pulse Ox 87% on R/A; bb 01:35 Body Mass Index 38.27 (104.33 kg, 165.10 cm) kg 04:45 with ambulation bb MDM: 04:46 Differential Diagnosis: Bronchitis Influenza Upper Respiratory Infection Allergic mh7 Rhinitis Viral Syndrome Pneumonia. Data reviewed: vital signs, nurses notes, lab test result(s), cardiac enzymes, CBC, electrolytes, urinalysis, UPT: negative EKG, radiologic studies, plain films. Data interpreted: Pulse oximetry: on room air is 87 %. Interpretation: hypoxia. Plan: O2 by NC applied. 04:48 Counseling: I had a detailed discussion with the patient and/or guardian regarding: the [facility] historical points, exam findings, and any diagnostic results supporting the discharge/admit diagnosis, lab results, radiology results, the need for further work-up and treatment in the hospital. Response to treatment: the patient's symptoms have mildly improved after treatment. 04:50 Patient medically screened. [facility] 03/10 02:02 Order name: Basic Metabolic Panel; Complete Time: 03:19 kg 03/10 02:02 Order name: CBC with Diff; Complete Time: 03: kg 03/10 02:02 Order name: LFT's; Complete Time: 03:19 kg 03/10 02:02 Order name: Magnesium; Complete Time: 03:19 kg 03/10 02:02 Order name: NT PRO-BNP; Complete Time: 03:19 kg 03/10 02:02 Order name: PT-INR; Complete Time: 03:19 kg 03/10 02:02 Order name: Troponin (emerg Dept Use Only); Complete Time: 03:19 kg 03/10 03:29 Order name: Urine Dipstick-Ancillary; Complete Time: 03:45 EDMS 03/10 03:30 Order name: Urine --Ancillary (enter results); Complete Time: 03:45 bb 03/10 03:48 Order name: D-Dimer 7 03/10 03:48 Order name: D-Dimer; Complete Time: 04:33 EDMS 03/10 04:48 Order name: CRP la1 03/10 04:48 Order name: Ferritin la1 03/10 04:48 Order name: C-Reactive Protein EDMS 03/10 02:02 Order name: XRAY Chest (1 view) kg 03/10 02:02 Order name: EKG; Complete Time: 02:03 kg 03/10 02:02 Order name: Cardiac monitoring; Complete Time: 02:03 kg 03/10 02:02 Order name: EKG - Nurse/Tech; Complete Time: 02:03 kg 03/10 02:02 Order name: IV Saline Lock; Complete Time: 02:03 kg 03/10 02:02 Order name: Labs collected and sent; Complete Time: 02:03 kg 03/10 02:02 Order name: O2 Per Protocol; Complete Time: 02:03 kg 03/10 02:02 Order name: O2 Sat Monitoring; Complete Time: 02:03 kg 03/10 02:24 Order name: Urine Dipstick-Ancillary (obtain specimen); Complete Time: 03:29 [facility] 03/10 02:24 Order name: Urine Test (obtain specimen); Complete Time: 03:29 [facility] 03/10 04:34 Order name: CT Chest For PE Angio [facility] 03/10 04:48 Order name: Oxygen [facility] Administered Medications: 02:03 Not Given (Ordered in Error): SOLU-Medrol (methylPREDNISolone sodium succinate) 80 mg kg IM once 02:10 Drug: SOLU-Medrol (methylPrednisoLONE) 80 mg Route: IVP; Site: right antecubital; kg 03:31 Follow up: Response: No adverse reaction bb 02:30 Drug: Albuterol HFA Inhaler 2 puffs Route: Inhalation; kg 03:31 Follow up: Response: No adverse reaction bb 03:55 Drug: NS 0.9% 1000 ml Route: IV; Rate: 1000 ml; Site: right antecubital; bb 04:49 Follow up: IV Status: Completed infusion; IV Intake: 950ml bb Disposition Summary: 03/10/21 04:50 Hospitalization Ordered Hospitalization Status: Inpatient Admission [facility] Provider: Palomo Pollard 7 Location: Telemetry/MedSurg (Inpatient) 7 Condition: Stable mh7 Problem: new mh7 Symptoms: have improved mh7 Bed/Room Type: Standard [facility] Room Assignment: 407(03/10/21 05:07) cg Diagnosis - COVID Pneumonia, Hypoxia 7 Forms: - Medication Reconciliation Form mh7 - SBAR form 7 Signatures: Dispatcher [employer] Jennifer Albert RN RN bb Garcia, Cindy, RN RN cg Holmes, Maurice, MD MD mh Ailyn Rudd RN RN kg Corrections: (The following items were deleted from the chart) 05:07 04:50 7 cg
--- NOTE | 2021-03-10 04:51 | ER ---
Nurse's Notes [facility] Name: Sylvie Gomez Age: 30 yrs Sex: Female : 1990 Arrival Date: 03/10/2021 Time: 01:07 Bed 12 Private MD: Diagnosis: COVID Pneumonia, Hypoxia Presentation: 03/10 01:35 Chief complaint: Patient states: Chest pain and difficulty breathing worse starting kg yesterday. COVID + 03/01. Coronavirus screen: Vaccine status: Patient reports being unvaccinated. muscle pain, shortness of breath, Client presents with at least one sign or symptom that may indicate coronavirus-19. Standard/surgical mask placed on the client. Provider contacted for isolation considerations. Client reports previous positive COVID test result. Date of collection: March 01, 2021. Ebola Screen: Patient negative for fever greater than or equal to 101.5 degrees Fahrenheit, and additional compatible Ebola Virus Disease symptoms Patient denies exposure to infectious person. Patient denies travel to an Ebola-affected area in the 21 days before illness onset. Initial Sepsis Screen: Does the patient meet any 2 criteria? No. Patient's initial sepsis screen is negative. Does the patient have a suspected source of infection? No. Patient's initial sepsis screen is negative. Risk Assessment: Do you want to hurt yourself or someone else? Patient reports no desire to harm self or others. Onset of symptoms was March 09, 2021. 01:35 Method Of Arrival: Ambulatory kg 01:35 Acuity: SYDNEE 3 kg Triage Assessment: 01:38 General: Appears in no apparent distress. Behavior is calm, cooperative, appropriate kg for age, quiet. Pain: Complains of pain in chest Pain currently is 10 out of 10 on a pain scale. at worst was 10 out of 10 on a pain scale. level that patient reports is acceptable is 4 out of 10 on a pain scale. Quality of pain is described as pressure, tightiness. Respiratory: Reports shortness of breath at rest on exertion cough that is productive, Onset: The symptoms/episode began/occurred gradually, the patient has mild shortness of breath. HOME HEALTH TRAVEL PT: 01:38 LMP 03/08/2021 kg Historical: - Allergies: 01:38 No Known Allergies; kg - Home Meds: 01:38 None [Active]; kg - PMHx: 01:38 None; kg - PSHx: 01:38 None; kg - Immunization history:: Adult Immunizations up to date, Client reports having NOT received the Covid vaccine. - Social history:: Smoking status: Patient denies any tobacco usage or history of. Screenin:39 Abuse screen: Denies threats or abuse. Denies injuries from another. Nutritional kg screening: No deficits noted. Tuberculosis screening: No symptoms or risk factors identified. Fall Risk None identified. Assessment: 02:00 General: Appears in no apparent distress. Behavior is calm, cooperative. Pain: Denies bb pain. Neuro: Level of Consciousness is awake, alert, obeys commands, Oriented to person, place, time, situation. Cardiovascular: Heart tones S1 S2 present Capillary refill < 3 seconds Patient's skin is warm and dry. Rhythm is sinus rhythm. Respiratory: Airway is patent Respiratory effort is even, unlabored, Breath sounds are clear bilaterally. GI: No signs and/or symptoms were reported involving the gastrointestinal system. Derm: Skin is pink, warm \T\ dry. Musculoskeletal: Circulation, motion, and sensation intact. 03:15 Reassessment: Patient and/or family updated on plan of care and expected duration. Pain bb level reassessed. Patient is alert, oriented x 3, equal unlabored respirations, skin warm/dry/pink. pt ambulated with steady gait to bathroom urine sample collected. 03:56 Reassessment: Patient is alert, oriented x 3, equal unlabored respirations, skin bb warm/dry/pink. pt instructed on wait time for new lab test. 04:44 Reassessment: Patient is alert, oriented x 3, equal unlabored respirations, skin bb warm/dry/pink. pt ambulated approx 100 feet O2 sats dropped to 87% Dr Horan notified. 05:29 Reassessment: Patient is alert, oriented x 3, equal unlabored respirations, skin bb warm/dry/pink. IV site intact, no erythema or edema noted report called to Yang DRAKE for room 407. Vital Signs: 01:35 BP 116 / 76; Pulse 109; Resp 24; Temp 98.7(TE); Pulse Ox 97% on R/A; Weight 104.33 kg kg (R); Height 5 ft. 5 in. (165.10 cm); Pain 10/10; 03:13 BP 103 / 65; Pulse 101; Resp 20 S; Pulse Ox 92% on R/A; bb 04:40 BP 100 / 59; Pulse 97; Resp 20 S; Pulse Ox 92% on R/A; bb 04:45 Pulse 109; Pulse Ox 87% on R/A; bb 01:35 Body Mass Index 38.27 (104.33 kg, 165.10 cm) kg 04:45 with ambulation bb ED Course: 01:07 Patient arrived in ED. bp1 01:38 Triage completed. kg 01:39 Patient has correct armband on for positive identification. kg 01:45 Phong Horan MD is Attending Physician. 7 02:00 Ailyn Rudd, VIDAL is Primary Nurse. kg 02:01 Inserted saline lock: 20 gauge in right antecubital area, using aseptic technique. kg 02:36 Basic Metabolic Panel Sent. kg 02:36 CBC with Diff Sent. kg 02:36 LFT's Sent. kg 02:36 Magnesium Sent. kg 02:36 Troponin (emerg Dept Use Only) Sent. kg 02:36 NT PRO-BNP Sent. kg 02:39 XRAY Chest (1 view) In Process Unspecified. EDMS 04:49 Palomo Pollard MD is Hospitalizing Provider. 7 05:28 No provider procedures requiring assistance completed. Patient admitted, IV remains in bb place. 05:29 Arm band placed on. bb Administered Medications: 02:03 Not Given (Ordered in Error): SOLU-Medrol (methylPREDNISolone sodium succinate) 80 mg kg IM once 02:10 Drug: SOLU-Medrol (methylPrednisoLONE) 80 mg Route: IVP; Site: right antecubital; kg 03:31 Follow up: Response: No adverse reaction bb 02:30 Drug: Albuterol HFA Inhaler 2 puffs Route: Inhalation; kg 03:31 Follow up: Response: No adverse reaction bb 03:55 Drug: NS 0.9% 1000 ml Route: IV; Rate: 1000 ml; Site: right antecubital; bb 04:49 Follow up: IV Status: Completed infusion; IV Intake: 950ml bb Intake: 04:49 IV: 950ml; Total: 950ml. bb Outcome: 04:50 Decision to Hospitalize by Provider. 7 05:28 Admitted to Tele accompanied by tech, via wheelchair, room 407, with chart, Report bb called to Yang DRAKE 05:28 Condition: stable 05:28 Instructed on the need for admit. 05:37 Patient left the ED. tt3 Signatures: Dispatcher [employer] Jennifer Albert RN RN Kita Scruggs Maurice, MD MD mh7 Matthew Calvillo tt3 Ailyn Rudd RN RN kg
--- NOTE | 2021-03-10 05:01 | P.HP ---
Certification for Inpatient Patient admitted to: Inpatient With expected LOS: >2 Midnights Patient will require the following post-hospital care: None Practitioner: I am a practitioner with admitting privileges, knowledge of patient current condition, hospital course, and medical plan of care. Services: Services provided to patient in accordance with Admission requirements found in Title 42 Section 412.3 of the Code of Federal Regulations Patient History Date of Service: 03/10/21 Primary Care Provider: None Reason for admission: COVID-19 pneumonia History of Present Illness: 30-year-old female with no significant past medical history presents the emergency department for shortness of breath. Patient reports testing positive for Covid on 03/01/2021, not vaccinated. Patient reports increasing shortness of breath over the course of last few days sats in the low 90s at rest with minimal exertion 87% on room air. Labs are significant for D-dimer 582, CRP, ferritin pending. Chest x-ray appears to demonstrate mild viral pneumonia, CT PE protocol pending. Patient tolerating to 3 L per nasal cannula this time, ED provider wishes to admit for further evaluation and management. - Past Medical/Surgical History -: None Past Surgical History: Reviewed- Non-Contributory Psychosocial/ Personal History: Lives at home with family - Family History Family History: Reviewed- Non-Contributory - Social History Smoking Status: Never smoker Alcohol use: No CD- Drugs: No Caffeine use: Yes Place of Residence: Home Review of Systems 10-point ROS is otherwise unremarkable General: Malaise Respiratory: Cough, Shortness of Breath Physical Examination - Physical Exam General: Alert, In no apparent distress, Oriented x3, Obese HEENT: Atraumatic, PERRLA, Mucous membr. moist/pink, EOMI, Sclerae nonicteric Neck: Supple, 2+ carotid pulse no bruit, No LAD, Without JVD or thyroid abnormality Respiratory: Diminished Cardiovascular: Regular rate/rhythm, Normal S1 S2 Gastrointestinal: Normal bowel sounds, No tenderness Musculoskeletal: No tenderness Integumentary: No rashes Neurological: Normal gait, Normal speech, Normal strength at 5/5 x4 extr, Normal tone, Normal affect Lymphatics: No axilla or inguinal lymphadenopathy - Studies Laboratory Data (last 24 hrs) 03/10/21 02:10: PT 12.6 H, INR 1.09 03/10/21 02:10: WBC 3.90 L, Hgb 14.8, Hct 43.7, Plt Count 193 03/10/21 02:10: Sodium 139, Potassium 3.6, BUN 9, Creatinine 0.75, Glucose 110 H, Magnesium 2.2, Total Bilirubin 0.5, AST 40 H, ALT 33, Alkaline Phosphatase 103 Assessment and Plan - Plan Assessment: Acute hypoxic respiratory failure secondary to COVID-19 pneumonia Plan: Acute hypoxic respiratory failure secondary to COVID-19 pneumonia: Continue IV steroids, oral supplements, supplemental oxygen as needed, daily room air saturations, room air saturation for home O2, respiratory and pulmonary consulted. Anticipate discharge the next 24 to 48 hours on home oxygen. DVT PPX: Lovenox Code status: Full Discharge Plan: Home Plan to discharge in: 48 Hours - Advance Directives Does patient have a Living Will: No Does patient have a Durable POA for Healthcare: No - Code Status/Comfort Care Code Status Assessed: Yes (Full code) Critical Care: No Time Spent Managing Pts Care (In Minutes): 55
[2021-03-10] MEDS ORDERED: ONDANSETRON 4 MG/2 ML VIAL IV PRN (05:34)
[2021-03-10] MEDS ORDERED: BENZONATATE 100 MG CAP PO PRN (05:34)
[2021-03-10] MEDS ORDERED: MELATONIN 5 MG TABLET PO PRN (05:34)
[2021-03-10] MEDS ORDERED: ACETAMINOPHEN 500 MG TAB PO PRN (05:34)
[2021-03-10 05:44] VITALS: BMI 34.9
[2021-03-10 05:57] LABS: C-Reactive Protein 26.6 mg/L (<3.00); Ferritin 277.6 ng/mL (8-388)
[2021-03-10] MEDS ORDERED: POTASSIUM CL SA 10 MEQ TAB PO ONE (06:19)
--- NOTE | 2021-03-10 08:14 | RAD REPORT ---
EXAM DESCRIPTION: Nela Single View03/10/2021 2:39 am CLINICAL HISTORY: Chest pain COMPARISON: none FINDINGS: Moderate patchy bilateral pulmonary opacities The heart is normal size IMPRESSION: Moderate patchy bilateral opacities probably pneumonia
[2021-03-10] MEDS: ASCORBIC ACID 500 MG TABLET PO SCH ×2 (08:31→13:00)
[2021-03-10] MEDS ORDERED: ASPIRIN EC 81 MG TAB PO SCH (09:00)
[2021-03-10] MEDS ORDERED: METHYLPREDNISOLONE 40 MG INJ IV SCH (09:00)
[2021-03-10] MEDS ORDERED: ENOXAPARIN 40 MG/0.4 ML SQ SCH (09:00)
[2021-03-10] MEDS ORDERED: ZINC SULFATE 220 MG CAP PO SCH (09:00)
[2021-03-10] MEDS ORDERED: THIAMINE HCL 100 MG TABLET PO SCH (09:00)
[2021-03-10] MEDS ORDERED: VITAMIN D 1000 UNIT TAB PO SCH (09:00)
--- NOTE | 2021-03-10 12:33 | P.CNS ---
Date of Consult: 03/10/21 Reason for Consult: Coronavirus pneumonia Primary Care Provider: None Chief Complaint: COVID-19 pneumonia History of Present Illness: Patient is 30 years of age no significant past medical history admitted with shortness of breath and coronavirus pneumonia is patient is currently on high flow oxygen Allergies No Known Allergies Allergy (Unverified 03/10/21 05:32) Home Medications: NK [No Home Meds] 03/10/21 - Past Medical/Surgical History -: None Psychosocial/ Personal History: Lives at home with family - Social History Alcohol use: No CD- Drugs: No Caffeine use: Yes Place of Residence: Home Review of Systems General: Weakness Respiratory: Shortness of Breath Physical Examination Temp Pulse Resp BP Pulse Ox 97.3 F 85 24 H 108/69 93 03/10/21 12:00 03/10/21 12:00 03/10/21 12:00 03/10/21 12:00 03/10/21 12:00 General: Alert, Oriented x3, Cooperative Laboratory Data (last 24 hrs) 03/10/21 02:10: PT 12.6 H, INR 1.09 03/10/21 02:10: WBC 3.90 L, Hgb 14.8, Hct 43.7, Plt Count 193 03/10/21 02:10: Sodium 139, Potassium 3.6, BUN 9, Creatinine 0.75, Glucose 110 H, Magnesium 2.2, Total Bilirubin 0.5, AST 40 H, ALT 33, Alkaline Phosphatase 103 - Problems (1) 2019 novel coronavirus-infected pneumonia (NCIP) Current Visit: Yes Status: Acute Plan: Patient is 30 years of age admitted with coronavirus pneumonia currently on high flow oxygen continue to wean and monitor continue with present therapy
[2021-03-10 12:47] VITALS: O2SAT 94
[2021-03-10] MEDS ORDERED: IVERMECTIN 3 MG TABLET PO SCH (14:00)
--- NOTE | 2021-03-10 15:12 | EKG ---
Test Date: 2021-03-10 Test Time: 01:53:04 Rn Oncology Clinical: SUKUMAR MEASUREMENT RESULTS: Intervals: Rate: 103 IL: 144 QRSD: 76 QT: 336 QTc: 440 [place]: P: 36 IL: 144 QRS: 92 T: 41 INTERPRETIVE STATEMENTS: Sinus tachycardia Rightward axis Borderline ECG No previous ECG available for comparison Electronically Signed On 03-10-21 15:10:46 CDT by Maximus Phillip
--- NOTE | 2021-03-10 15:50 | RAD REPORT ---
EXAM DESCRIPTION: CT - Chest For Pe Angio - 03/10/2021 6:32 am CLINICAL HISTORY: 30 years, Female, SOB COMPARISON: None. TECHNIQUE: Axial images through the chest were performed after the administration of intravenous con trast using a pulmonary embolus protocol. MIPS were performed. This exam was performed according to our departmental dose-optimization program which includes use of Automated Exposure Control, adjustm ent of the mA and/or kV according to patient size and/or use of iterative reconstruction technique. FINDINGS: No pulmonary embolus is identified. Normal caliber aorta without dissection. No pericardial effusion. No coronary calcifications. No pericardial effusion. Extensive interstitial and patchy alveolar opacities throughout the lungs. The trachea and central ai rways are clear. There is no pneumothorax. No pleural fluid collection. Soft tissues are unremarkable. No acute osseous findings. No acute abnormality within the visualized upper abdomen. IMPRESSION: No pulmonary embolus. Extensive interstitial and alveolar opacities throughout the lungs suspicious for Covid 19. Electronically signed by: Denis Resendez DO 03/10/2021 6:19 AM CDT Due to temporary technical issues with the PACS/Fluency reporting system, reports are being signed by the in house radiologists without review as a courtesy to insure prompt reporting. The interpreting radiologist is fully responsible for the content of the report.
[2021-03-10 18:07] VITALS: BP 108/70; TEMP 97.1
--- NOTE | 2021-03-10 21:27 | P.DS ---
Admission Date: 03/10/21 Discharge Date: 03/10/21 Primary Care Provider: None Disposition: ROUTINE DISCHARGE Discharge Condition: GOOD Reason for Admission: COVID-19 pneumonia Consultations: Pulmonology - Dr. Weinberg Procedures: CXR (03/10): Moderate patchy bilateral opacities probably pneumonia CTA Chest (03/10): FINDINGS: No pulmonary embolus is identified. Normal caliber aorta without dissection. No pericardial effusion. No coronary calcifications. No pericardial effusion. Extensive interstitial and patchy alveolar opacities throughout the lungs. The trachea and central airways are clear. There is no pneumothorax. No pleural fluid collection. Soft tissues are unremarkable. No acute osseous findings. No acute abnormality within the visualized upper abdomen. IMPRESSION: No pulmonary embolus. Extensive interstitial and alveolar opacities throughout the lungs suspicious for Covid 19. Problem List Acute hypoxic respiratory failure secondary to COVID-19 pneumonia Brief History of Present Illness: 30-year-old female with no significant past medical history presents the emergency department for shortness of breath. Patient reports testing positive for Covid on 03/01/2021, not vaccinated. Patient reports increasing shortness of breath over the course of last few days sats in the low 90s at rest with minimal exertion 87% on room air. Labs are significant for D-dimer 582, elevated CRP. Chest x-ray appears to demonstrate mild viral pneumonia, CT PE protocol pending. Patient tolerating 3 L per nasal cannula this time, ED provider wishes to admit for further evaluation and management. Hospital Course: CTA was negative for PE. Patient was breathing comfortably on 2L NC, ambulating well without significant hypoxia while on oxygen. She felt well and wanted to be discharged home. She was doing better than when she presented to ED and was deemed stable to be discharged home with steroids and oxygen supplementation. She is to follow up with Dr. Weinberg in ~1 week. Vital Signs/Physical Exam: Temp Pulse Resp BP Pulse Ox 97.1 F 80 20 108/70 91 03/10/21 16:00 03/10/21 16:00 03/10/21 16:00 03/10/21 16:03/10/21 16:00 General: Alert, In no apparent distress, Oriented x3 HEENT: Sclerae nonicteric Respiratory: Other (nonlabored respirations on 2 LNC) Gastrointestinal: Soft and benign, Non-distended, No tenderness Musculoskeletal: No tenderness Integumentary: No rashes Neurological: Normal speech, Normal affect Laboratory Data at Discharge: WBC 3.90 K/uL (4.3-10.9) L 03/10/21 02:10 Hgb 14.8 g/dL (12.0-15.0) 03/10/21 02:10 Hct 43.7 % (36.0-45.0) 03/10/21 02:10 Plt Count 193 K/uL (152-406) 03/10/21 02:10 PT 12.6 SECONDS (9.5-12.5) H 03/10/21 02:10 INR 1.09 03/10/21 02:10 Sodium 139 mmol/L (136-145) 03/10/21 02:10 Potassium 3.6 mmol/L (3.5-5.1) 03/10/21 02:10 BUN 9 mg/dL (7-18) 03/10/21 02:10 Creatinine 0.75 mg/dL (0.55-1.3) 03/10/21 02:10 Glucose 110 mg/dL (74-106) H 03/10/21 02:10 Magnesium 2.2 mg/dL (1.8-2.4) 03/10/21 02:10 Total Bilirubin 0.5 mg/dL (0.2-1.0) 03/10/21 02:10 AST 40 U/L (15-37) H 03/10/21 02:10 ALT 33 U/L (12-78) 03/10/21 02:10 Alkaline Phosphatase 103 U/L (45-117) 03/10/21 02:10 Home Medications: Aspirin [Aspirin EC 81 MG] 81 mg PO DAILY 30 Days #30 tablet. 03/10/21 RX: Ascorbic Acid [Vitamin C*] 500 mg PO QID 30 Days #120 tablet 03/10/21 RX: Cholecalciferol (Vitamin D3) [Vitamin D 1000 Iu Tab*] 4,000 unit PO DAILY 30 Days #120 tab 03/10/21 RX: predniSONE [Prednisone] 20 mg PO SEECOM 14 Days #21 tablet 03/10/21 New Medications: Aspirin [Aspirin EC 81 MG] 81 mg PO DAILY 30 Days #30 tablet. RX: predniSONE [Prednisone] 20 mg PO SEECOM 14 Days #21 tablet RX: Ascorbic Acid [Vitamin C*] 500 mg PO QID 30 Days #120 tablet RX: Cholecalciferol (Vitamin D3) [Vitamin D 1000 Iu Tab*] 4,000 unit PO DAILY 30 Days #120 tab Physician Discharge Instructions: You were found to have COVID-19 pneumonia. You had improvement with steroids, vitamins, and oxygen supplementation. You are discharged home to continue this treatment. Recommend taking a daily 81mg aspiring for the next [address] Weinberg's office in the next day or 2 to schedule a follow up appointment in ~1 week. Diet: Regular Activity: Ad saranya Followup: Selvin Weinberg MD [ACTIVE - CAN ADMIT] - Unknown,U [Primary Care Provider] - Time spent managing pt's care (in minutes): 40
== END 2021-03-10 17:00 | disposition home or self-care (01) | DRG 177 ==
LOC: ER 01:04 → ERHOLD 04:52 → 4TH 05:30
PROVIDERS: ADMIT Hospitalist; ATTEND Hospitalist
DX: U07.1 COVID-19 (principal); J12.82 Pneumonia due to coronavirus disease 2019; J96.01 Acute respiratory failure with hypoxia
CPT/HCPCS: 36415; 71045; 71275; 80048; 80076; 81003; 81025; 82728; 83735; 83880; 84484; 85025; 85379; 85610; 86140; 93005; 94760; 96361; 96374; 99285; J1650; J2920; J7030; Q9967

== ENCOUNTER 2023-05-26 20:53 | Emergency (ER) | payer OTHER, SELFPAY ==
--- OUTSIDE RECORDS SUMMARY | 2023-05-26 20:56 | XMS REPORT | Continuity of Care Document ---
:1990 Author Organization [facility] t Address [address] [place] [address] Care Team Providers Name Role Phone RADHA EVERETT Primary Care Physician Unavailable RADHA EVERETT Attending Clinician Unavailable Jennifer Brito CNM Attending Clinician JENNIFER BRITO Attending Clinician Unavailable Doctor Unassigned, [place] Attending Clinician Unavailable Radha Sher Attending Clinician [phone] Suze Johnson Attending Clinician Vira Palmer RN Attending Clinician Unavailable Christina Tamez Attending Clinician Unknown, Attending Attending Clinician Unavailable Only, Ang Db Test Attending Clinician Unavailable UNKNOWN, ATTENDING Attending Clinician Unavailable SUZE ACOSTA Attending Clinician Unavailable VIANNEY SHERIFF Attending Clinician Unavailable GENE CHAVEZ Attending Clinician Unavailable HERMILO ALEXANDER Attending Clinician Unavailable VIANNEY SHERIFF Admitting Clinician Unavailable HERMILO ALEXANDER Admitting Clinician Unavailable Payers Payer Name Policy Type Policy Number Effective Date Expiration Date S lauren [place] [id number] 2023 00:00:00 [place] [facility] [id number] 2020 HEALTH 00:00:00 Problems Condition Condition Condition Status Onset Resolution Last Treating Co mments Source Name Details Category Date Date Treatment Clinician Date Presence Presence Disease Active Unive rs of of 4-20 [place] contracept contracept Br anch reddy device reddy device Pain Pain Disease Active Univers pelvic pelvic 4-20 ity of 00:00: [place] [address] Medical Branch Obesity Obesity Disease Active Univers (BMI (BMI 6-25 ity of 30-39.9) 30-39.9) 00:00: [place] [address] Medical Branch Encounter Encounter Disease Active Uni vers for IUD for IUD 6-25 [place] Miscarriag Miscarriag Disease Active U nivers e within e within 6-25 ity of last 12 last 12 00:00: [place] [facility] Cervical Cervical Disease Active 2018-07 [...] it[place] of var[place] [facility] Allergies, Adverse Reactions, Alerts Allergy Allergy Status Severity Reaction(s) Onset Inactive Treating Comm ents Source Name Type Date Date Clinician NO KNOWN Drug Active Univers ALLERGIE Class ity of S [facility] Social History Social Habit Start Date Stop Date Quantity Comments Source History [facility] University o f Alcohol Comment [place] [facility] ical [facility] Gender identity Universit y of [facility] Sexual orientation Univer sity of [facility] History SDCO University o f Alcohol Std Drinks [facility] History [facility] University o f Alcohol Binge [place] [facility] [place] History of Social 2023-03-06 2023-03-06 Univers ity of function 00:00:00 00:00:00 [facility] Alcohol intake 2021-08-21 2021-08-21 Ex-drinker University of 00:00:00 00:00:00 (finding) [facility] Exposure to 2021-07-21 2021-08-20 Unable to assess Univers ity of SARS-CoV-2 (event) 00:00:00 13:35:00 [facility] Tobacco use and 2019-05-20 2019-05-20 Smokeless Universit y of exposure 00:00:00 00:00:00 tobacco non-user [facility] [place] [facility] dical [place] History SDOH 2019-05-20 2019-05-20 1 University o f Alcohol Frequency 00:00:00 00:00:00 [facility] Sex Ass[birth year] At [birth year] Universit y of 00:00:00 00:00:00 [facility] Smoking Status Start Date Stop Date Source Never smoked tobacco [facility] Medications Ordered Filled Start Stop Current Ordering Indication Dosage Frequency Signature Comments Components Source Medication Medication Date Date Medication? Clinician (SIG) Name Name metroNIDAZO Yes [id number] 500mg Take 1 Univers LE 500 mg 2-22 tablet by ity o f tablet 00:00: mouth 2 [place] 00 (two) Medical times Branch daily. metroNIDAZO 0 Yes [id number] 500mg Take 1 Univers LE 500 mg 2-22 tablet by ity o f tablet 00:00: mouth 2 [place] 00 (two) Medical times Branch daily. metroNIDAZO 2021-0 3- No [id number] 500mg Take 1 Univers LE 500 mg 2-22 08-31 tablet by ity of tablet 00:00: 00:00 mouth 2 [place] 00 :00 (two) Medical times Branch daily. metroNIDAZO 2021-0 3- No [id number] 500mg Take 1 Univers LE 500 mg 2-22 08-31 tablet by ity of tablet 00:00: 00:00 mouth 2 [place] 00 :00 (two) Medical times Branch daily. metroNIDAZO 2021-0 3- No [id number] 500mg Take 1 Univers LE 500 mg 2-22 08-31 tablet by ity of tablet 00:00: 00:00 mouth 2 [place] 00 :00 (two) Medical times Branch daily. Immunizations Ordered Filled Date Status Comments Source Immunization Name Immunization Name HPV9 2023-03-06 Completed University 00:00:00 [facility] HPV9 2023-03-06 Completed [facility] 00:00:00 [facility] Varicella 2019-05-30 Completed [facility] (varivax)(chicken 00:00:00 [facility] edical pox) Branch Varicella 2019-05-30 Completed University of (varivax)(chicken 00:00:00 [place] M edical pox) Branch Varicella 2019-05-30 Completed University of (varivax)(chicken 00:00:00 [place] [facility] edical pox) Branch Varicella 2019-05-30 Completed University of (varivax)(chicken 00:00:00 [place] M edical pox) Branch Influenza Virus 2019-05-20 Completed Universit y of Vaccine Quad .5 mL 00:00:00 [facility] IM 6+ MO Branch TDAP (ADACEL) 2019-05-20 Completed University of VACCINE 00:00:00 [facility] Influenza Virus 2019-05-20 Completed Universit y of Vaccine Quad .5 mL 00:00:00 [facility] IM 6+ MO Branch (FLUZONE/FLULAVAL/F LUARIX) TDAP (ADACEL) 2019-05-20 Completed University of VACCINE 00:00:00 [facility] Influenza Virus 2019-05-20 Completed Universit y of Vaccine Quad .5 mL 00:00:00 [facility] IM 6+ MO Branch (FLUZONE/FLULAVAL/F LUARIX) TDAP (ADACEL) 2019-05-20 Completed University of VACCINE 00:00:00 [facility] Influenza Virus 2019-05-20 Completed Universit y of Vaccine Quad .5 mL 00:00:00 [facility] 6+ MO Branch (FLUZONE/FLULAVAL/F LUARIX) TDAP (ADACEL) 2019-05-20 Completed University of VACCINE 00:00:00 [facility] Influenza Virus Unknown Completed Universit y of Vaccine Quad .5 mL [facility] IM 6+ MO Branch (FLUZONE/FLULAVAL/F LUARIX) TDAP (ADACEL) Unknown Completed University of VACCINE [facility] Varicella Unknown Completed University of (varivax)(chicken [place] M ed[facility] pox) Branch Influenza Virus Unknown Completed Universit y of Vaccine Quad .5 mL [facility] IM 6+ MO Branch (FLUZONE/FLULAVAL/F LUARIX) TDAP (ADACEL) Unknown Completed University of VACCINE [facility] Varicella Unknown Completed University of (varivax)(chicken [place] M edical pox) Branch Influenza Virus Unknown Completed Universit y of Vaccine Quad .5 mL [facility] IM 6+ MO Branch (FLUZONE/FLULAVAL/F LUARIX) TDAP (ADACEL) Unknown Completed [facility] VACCINE [facility] Varicella Unknown Completed [facility] (varivax)(chicken [place] M edical pox) [place] Vital Signs Vital Name Observation Time Observation Value Comments Source Heart rate 2023-03-06 18:09:00 69 /min [facility] Body temperature 2023-03-06 18:09:00 35.89 [facility] Respiratory rate 2023-03-06 18:09:00 18 /min [facility] Body height 2023-03-06 18:09:00 162.6 cm [facility] Body weight 2023-03-06 18:09:00 101.107 kg [facility] BMI 2023-03-06 18:09:00 38.26 kg/m2 [facility] Systolic blood 2023-03-06 18:09:00 117 mm[Hg] [facility] Diastolic blood 2023-03-06 18:09:00 73 [facility]Hg[facility] Procedure Date / Time Performed Performing Clinician Sour e GARDASIL 9 (HPV 9V) 2023-03-06 18:20:58 [facility] 2023-03-06 17:54:15 Doctor Unassigned, No [facility] Encounters Start End Encounter Admission Attending Care Care Encounter Source Date/Time Date/Time Type Type Clinicians Facility Department ID 2023-09-10 2023-09-10 Outpatient R [facility] [id number] Univers 14:30:00 14:30:00 [facility] 2023-04-07 2023-04-07 Outpatient R [facility] [id number] Univers 14:00:00 14:00:00 [facility] 2023-03-06 2023-03-06 Office MASHA Brito [id number] Univers 13:30:00 14:42:14 Visit Jennifer Kelly TESTER OPERATOR HELPER [id number] i ty [facility] [id number] [place] as MATERNAL [phone] Med ical & CHILD [address] [place] [address] 2023-03-06 2023-03-06 Outpatient R DARYL [facility] [id number] Univers 13:30:00 14:42:14 JENNIFER ity [facility] 2023-03-06 2023-03-06 Orders Doctor HEBER [id number] Univers 00:00:00 00:00:00 Only Unassigned, SALO [id number] ity of [place] [facility] [id number] [place] as [phone] [address] 2023-01-19 2023-01-19 Patient Karlos [facility] [id number] Univers 00:00:00 00:00:00 Secure Msg Radha C TESTER OPERATOR HELPER [id number] ity of [facility] [id number] [place] MATERNAL [id number] [facility] ical & CHILD [address] [place] [address] 2022-01-31 2022-01-31 Outpatient R KARLOS [facility] [id number] Univers 13:15:00 13:15:00 [address] o f [facility] 2021-08-28 2021-08-28 Patient Dave [facility] [id number] Univers 00:00:00 00:00:00 Secure Msg Suze N TESTER OPERATOR HELPER [id number] ity of [id number] [place] MATERNAL [phone] [facility] & [address] 2021-08-23 2021-08-23 [facility] [id number] Univers 00:00:00 00:00:00 Radha C TESTER OPERATOR HELPER [id number] ity of [facility] [id number] [place] MATERNAL [id number] [facility] & CHILD [address] [place] [address] 2021-08-23 2021-08-23 Patient Dave [facility] [id number] Univers 00:00:00 00:00:00 Secure Msg Suze N TESTER OPERATOR HELPER [id number] ity of [facility] [id number] [place] MATERNAL [phone] [facility] & CHILD [address] [place] [address] 2021-08-21 2021-08-21 [facility] [id number] Univers 15:30:00 15:45:00 Visit Radha Garcia TESTER OPERATOR HELPER [id number] ity of [facility] [id number] [place] MATERNAL [id number] [facility] & [address] 2021-08-21 2021-08-21 Outpatient R KARLOS [facility] [id number] Univers 15:30:00 15:30:00 [address] o f [facility] 2021-08-20 2021-08-20 Telephone [facility] [id number] Univers 00:00:00 00:00:00 Radha Garcia TESTER OPERATOR HELPER [id number] ity of [facility] [id number] [place] MATERNAL [id number] [facility] & CHILD [address] [place] [address] 2021-03-03 2021-03-03 Letter Vira Palmer [id number] Univers 00:00:00 00:00:00 (Out) [place] [id number] it y of [facility] [id number] [place] as [id number] [address] 2021-03-01 2021-03-01 Urgent Christina Huitron [facility] [id number] Univers 19:28:29 19:48:29 Care Unknown, Attending [facility] [id number] ity [facility] [id number] [place] Ion?Blea [phone] Dc lore[address] Medical Office Building 2021-03-01 2021-03-01 Laboratory Only, Ang Db Test [facility] [id number] Univers 19:37:34 19:47:34 Only Unknown, Attending [facility] [id number] ity [facility] [id number] [place] Ion?Blea [phone] Dc stephanie [address] Medical Office Building 2021-03-01 2021-03-01 Outpatient R SHERI, [facility] [id number] Univers 19:40:00 19:40:00 ATTENDING [facility] 2021-03-01 2021-03-01 Outpatient R SHERI, [facility] [id number] Univers 19:30:00 19:30:00 ATTENDING [facility] 2021-01-30 2021-01-30 Outpatient R DAVE [facility] [id number] Univers 09:30:00 09:30:00 [facility] 2020-12-28 2020-12-28 [facility] [id number] Univers 15:15:00 15:15:00 [facility] 2020-11-01 2020-11-01 [facility]patient [facility] [id number] Univers 00:00:00 00:00:00 [facility] 2020-10-24 2020-10-24 Outpatient R DAVE [facility] [id number] Univers 16:00:00 16:00:00 [facility] 2020-03-09 2020-03-09 [facility]patient [facility] [id number] Univers 10:30:00 10:30:00 SUZE [facility] 2020-03-02 2020-03-02 Outpatient Marcel[facility] [id number] Univers 10:30:00 10:30:00 [facility] 2020-01-20 2020-01-20 [facility] [id number] Univers 10:15:00 10:15:00 [facility] 2019-12-30 2019-12-30 Outpatient Marcel[facility] [id number] Univers 14:30:00 14:30:00 [facility] 2019-12-16 2019-12-16 Outpatient R KARLOS [facility] [id number] Univers 09:00:00 09:00:[address] [facility] 2019-12-16 2019-12-16 Outpatient R AKINCONSUELO, [facility] [id number] Univers 08:30:00 08:30:[address] [facility] 2019-12-08 2019-12-08 Emergency X SHARITA, [facility] ERT [id number] Univers 10:10:55 14:52:00 VIANNEY perdomo [facility] 2019-12-08 2019-12-08 Outpatient R KATHY [facility] [id number] Univers 09:30:00 09:30:[address] [facility] 2019-05-28 2019-05-30 Inpatient P REDD [facility] HAI [id number] Univers 15:13:00 16:25:[address] [facility] Results This patient has no known results.
[2023-05-26] MEDS ORDERED: IBUPROFEN 400 MG TAB ONE (21:33)
[2023-05-26] MEDS ORDERED: GUAIFENESIN/DM 5 ML UCUP ONE (21:33)
[2023-05-26] MEDS ORDERED: PROMETHAZINE 25 MG TABLET ONE (21:33)
[2023-05-26 22:51] LABS: Specific Gravity > 1.030 (1.005-1.030)
--- NOTE | 2023-05-26 23:00 | ER ---
Nurse's Notes [facility] Name: Sylvie Gomez Age: 32 yrs Sex: Female : 1990 Arrival Date: 05/26/2023 Time: 20:53 Bed IW1 Private MD: Diagnosis: Viral infection, unspecified;Influenza B , Viral bronchitis Presentation: 05/26 21:11 Chief complaint: Patient states: "I've had a cough since Friday and it's getting worse. mb9 have a headache and feel congested and have body aches". Coronavirus screen: Vaccine status: Patient reports being unvaccinated. Ebola Screen: No symptoms or risks identified at this time. Initial Sepsis Screen: Does the patient meet any 2 criteria? No. Patient's initial sepsis screen is negative. Does the patient have a suspected source of infection? No. Patient's initial sepsis screen is negative. Risk Assessment: Do you want to hurt yourself or someone else? Patient reports no desire to harm self or others. 21:11 Method Of Arrival: Ambulatory mb9 21:11 Acuity: SYDNEE 4 mb9 Triage Assessment: 21:12 General: Appears in no apparent distress. Behavior is calm, cooperative. Pain: mb9 Complains of pain in throat and entire body. EENT: Throat is reddened. Neuro: Snowden Agitation-Sedation Scale (RASS): 0 - Alert and Calm Level of Consciousness is awake, alert, obeys commands, Oriented to person, place, time, situation, Appropriate for age. Cardiovascular: Patient's skin is warm and dry. Respiratory: Reports cough that is Airway is patent Respiratory effort is even, unlabored, Respiratory pattern is regular, symmetrical, Breath sounds are clear bilaterally. GI: Abdomen is round non-distended, Bowel sounds present X 4 quads. Abd is soft and non tender X 4 quads. : No signs and/or symptoms were reported regarding the genitourinary system. Derm: Skin is pink, warm \\T\\ dry. Musculoskeletal: Range of motion: intact in all extremities. Historical: - Allergies: 21:12 No Known Allergies; mb9 - Home Meds: 21:12 None [Active]; mb9 - PMHx: 21:12 None; mb9 - PSHx: 21:12 None; mb9 - Immunization history:: Adult Immunizations up to date. - Social history:: Smoking status: Patient denies any tobacco usage or history of. - Family history:: not pertinent. Screenin:12 [facility] ED Fall Risk Assessment (Adult) History of falling in the last 3 months, kl including since admission No falls in past 3 months (0 pts) Confusion or Disorientation No (0 pts) Intoxicated or Sedated No (0 pts) Impaired Gait No (0 pts) Mobility Assist Device Used No (0 pt) Altered Elimination No (0 pt) Score/Fall Risk Level 0 - 2 = Low Risk Oriented to surroundings, Maintained a safe environment. Abuse screen: Denies threats or abuse. Nutritional screening: No deficits noted. Tuberculosis screening: No symptoms or risk factors identified. Assessment: 23:12 Reassessment: Patient appears in no apparent distress at this time. Patient is alert, kl oriented x 3, equal unlabored respirations, skin warm/dry/pink. Patient states feeling better. Patient states symptoms have improved. Vital Signs: 21:11 Pulse 100; Resp 18; Temp 97.1; Pulse Ox 100% on R/A; Weight 113.4 kg; Height 5 ft. 5 mb9 in. ; 21:11 BP 120 / 62; mb9 23:12 BP 122 / 79; Pulse 78; Resp 16; Temp 98.9(O); Pulse Ox 99% on R/A; kl 21:11 Body Mass Index 41.60 (113.40 kg, 165.1 cm) mb9 ED Course: 20:58 Patient arrived in ED. gm2 21:06 Chaz Wagner MD is Attending Physician. sp4 21:12 Triage completed. mb9 21:12 Arm band placed on. mb9 21:17 Influenza Screen (a \\T\\ B) Sent. mb9 21:17 COVID-19 SARS RT PCR Sent. mb9 23:13 No provider procedures requiring assistance completed. Patient did not have IV access kl during this emergency room visit. Administered Medications: 21:23 Drug: Promethazine PO 25 mg PO once Route: PO; kl 21:23 Drug: Dextromethorphan-Guaifenesin PO Liquid 10 mg-100 mg/5 mL 10 ml PO once Route: PO; kl 21:23 Drug: Ibuprofen PO 800 mg PO once Route: PO; kl Outcome: 23:00 Discharge ordered by MD. lopez 23:13 Discharged to home ambulatory, 23:13 Condition: improved 23:13 Discharge instructions given to patient, Instructed on discharge instructions, follow up and referral plans. Demonstrated understanding of instructions, follow-up care, medications, Prescriptions given X 4, 23:13 Patient left the ED. Signatures: Kate Leong RN RN kl Breneman, Mary Beth, RN RN mb9 Chaz Wagner MD MD sp4 Teena Quick [facility]
--- NOTE | 2023-05-26 23:00 | EDPHYS ---
Physician Documentation [facility] [place] Name: Sylvie Gomez Age: 32 yrs Sex: Female : 1990 Arrival Date: 05/26/2023 Time: 20:53 Bed IW1 Private MD: ED Physician Chaz Wagner HPI: 05/26 21:11 This 32 yrs old Female presents to ER via Unassigned with complaints of Flu sp4 Symptoms. 05/27 03:07 Patient presents with 1 day of fever chills nausea feeling unwell overall", and also sp4 nonproductive cough. Historical: - Allergies: 05/26 21:12 No Known Allergies; mb9 - Home Meds: 21:12 None [Active]; mb9 - PMHx: 21:12 None; mb9 - PSHx: 21:12 None; mb9 - Immunization history:: Adult Immunizations up to date. - Social history:: Smoking status: Patient denies any tobacco usage or history of. - Family history:: not pertinent. ROS: 05/27 03:07 Constitutional: Positive fever, positive chills, positive fatigue positive cough sp4 positive headache , positive body aches Eyes: Negative for injury, pain, redness, and discharge, ENT: Negative for injury, pain, and discharge, All other systems are negative, Exam: 03:07 Constitutional: This is a well developed, well nourished patient who is awake, alert, sp4 and in no acute distress. Head/Face: Normocephalic, atraumatic. Eyes: Pupils equal round and reactive to light, extra-ocular motions intact. Lids and lashes normal. Conjunctiva and sclera are not injected. Cornea within normal limits. Periorbital areas with no swelling, redness, or edema. ENT: Nares patent. No nasal discharge, no septal abnormalities noted. Tympanic membranes are normal and external auditory canals are clear. Oropharynx with no redness, swelling, or masses, exudates, or evidence of obstruction, uvula midline. Mucous membranes moist. Neck: Trachea midline, no thyromegaly or masses palpated, and no cervical lymphadenopathy. Supple, full range of motion without nuchal rigidity, or vertebral point tenderness. Chest/axilla: Normal chest wall appearance and motion. Nontender with no deformity. No lesions are appreciated. Cardiovascular: Regular rate and rhythm with a normal S1 and S2. No gallops, murmurs, or rubs. Normal PMI, no JVD. No pulse deficits. Respiratory: Lungs have equal breath sounds bilaterally, clear to auscultation and percussion. No rales, rhonchi or wheezes noted. No increased work of breathing, no retractions or nasal flaring. Abdomen/GI: Soft, non-tender, with normal bowel sounds. No distension or tympany. No guarding or rebound. No evidence of tenderness throughout. Back: No spinal tenderness. No costovertebral tenderness. Skin: Warm, dry with normal turgor. Normal color with no rashes, no lesions, and no evidence of cellulitis. MS/ Extremity: Pulses equal, no cyanosis. Neurovascular intact. Full, normal range of motion. Neuro: Awake and alert, GCS 15, oriented to person, place, time, and situation. Cranial nerves II-XII grossly intact. Motor strength 5/5 in all extremities. Sensory grossly intact. Psych: Awake, alert, with orientation to person, place and time. Behavior, mood, and affect are within normal limits Vital Signs: 05/26 21:11 Pulse 100; Resp 18; Temp 97.1; Pulse Ox 100% on R/A; Weight 113.4 kg; Height 5 ft. 5 mb9 in. ; 21:11 BP 120 / 62; mb9 23:12 BP 122 / 79; Pulse 78; Resp 16; Temp 98.9(O); Pulse Ox 99% on R/A; kl 21:11 Body Mass Index 41.60 (113.40 kg, 165.1 cm) mb9 MDM: 21:07 Patient medically screened. sp4 05/27 03:09 Differential Diagnosis altered mental status, sepsis, flu. Data reviewed: vital signs, sp4 nurses notes, old medical records, lab test result(s), Flu: positive UPT: negative. Consideration of Admission/Observation Escalation of care including admission/observation considered. ED course: Patient is positive for influenza B. We will provide oseltamivir. 05/26 21:07 Order name: COVID-19 SARS RT PCR; Complete Time: 22:55 sp4 05/26 21:07 Order name: Influenza Screen (a \\T\\ B); Complete Time: 22:55 sp4 05/26 21:07 Order name: Test, Urine; Complete Time: 03:09 sp4 05/26 22:51 Order name: Glucose, Ancillary Testing; Complete Time: 22:55 EDKY 05/26 21:17 Order name: Accucheck Blood Glucose; Complete Time: 22:51 sp4 Administered Medications: 05/26 21:23 Drug: Promethazine PO 25 mg PO once Route: PO; 21:23 Drug: Dextromethorphan-Guaifenesin PO Liquid 10 mg-100 mg/5 mL 10 ml PO once Route: PO; kl 21:23 Drug: Ibuprofen PO 800 mg PO once Route: PO; kl Disposition Summary: 05/26/23 23:00 Discharge Ordered Problem: new sp4 Symptoms: have improved sp4 Condition: Stable sp4 Diagnosis - Viral infection, unspecified sp4 - Influenza B , Viral bronchitis sp4 Followup: sp4 - With: Private Physician - When: 7 - 10 days - Reason: Recheck today's complaints Discharge Instructions: - Discharge Summary Sheet sp4 - Influenza, Adult, [id number] sp4 Forms: - Patient Portal Instructions sp4 Prescriptions: - dextromethorphan-guaifenesin 30-200 mg/5 mL Oral liquid - take 10 milliliter ORAL route every 8 hours PRN cough; 200 milliliter; Refills: sp4 0, Product Selection Permitted - naproxen 500 mg Oral tablet - take 1 tablet ORAL route every 12 hours for chills and fever; 30 tablet; sp4 Refills: 0, Product Selection Permitted - Cyclobenzaprine 10 mg Oral tablet - take 1 tablet ORAL route every 8 hours As needed PRN muscle aches; 30 tablet; sp4 Refills: 0, Product Selection Permitted - promethazine 25 mg Oral Tablet - take 1 tablet ORAL route every 6 hours As needed; 20 tablet; Refills: 0, sp4 Product Selection Permitted - Tamiflu 75 mg Oral capsule - take 1 tablet ORAL route every 12 hours for 5 days; 10 tablet; Refills: 0, sp4 Product Selection Permitted Signatures: Dispatcher [employer] EDMS Kate Leong RN Delaney Segovia RN RN mb9 Potepalov, Sergey, MD MD sp4
[2023-05-27 00:23] VITALS: BP 122/79; TEMP 98.9; O2SAT 99
== END 2023-05-26 23:13 | disposition home or self-care (01) ==
LOC: ER 20:53
DX: J10.1 Influenza due to other identified influenza virus with other respiratory manifestations (principal); J20.8 Acute bronchitis due to other specified organisms; Z11.52 Encounter for screening for COVID-19
CPT/HCPCS: 81025; 82947; 87635; 87804; 99284; Q0169